=== PATIENT | female | born 1935 | race Caucasian/White ===

== ENCOUNTER → 2017-01-15 | Outpatient (CLI) | payer MEDICARE ==
[~2017-01-15] MED LIST: ACET-1256 PO; AMT50 PO; ASCA500 PO; BNV150 PO; CLTP PO; LODINE PO; MULT-506 PO; POTASSIUM OTC PO
--- NOTE | 2017-01-15 16:03 | DIAGNOSTIC IMAGING REPORT ---
LEFT HAND MIN 3 VIEWS ROUTINE CLINICAL HISTORY: S69.90XA Hand [id number] trauma COMPARISON: None. DISCUSSION: Generalized degenerative change. Osteopenia. No well-defined acute bony abnormality. There is no evidence for soft tissue swelling. IMPRESSION: No acute process. Degenerative change. Osteopenia. Electronically signed by: Blair Luu M.D. 01/15/2017 4:01 PM Dictated Date/Time: 01/15/2017 4:00 PM
== END | disposition home or self-care (01) ==
LOC: C.RADBC 14:50
PROVIDERS: ATTEND Physician Assistant Medical
DX: S69.90XA Unspecified injury of unspecified wrist, hand and finger(s), initial encounter (principal); X58.XXXA Exposure to other specified factors, initial encounter; M85.842 Other specified disorders of bone density and structure, left hand

== ENCOUNTER → 2017-05-05 | Outpatient (CLI) | payer MEDICARE ==
[2017-05-05 18:11] LABS: URINE APPEARANCE CLEAR (CLEAR); URINE COLOR DK YELLOW; URINE NITRITE NEG (NEG); URINE SPECIFIC GRAVITY 1.032 (1.000-1.030); UROBILINOGEN NEG (NEG)
[2017-05-05 18:17] LABS: MANUAL MICROSCOPIC REQUIRED? NO; REVIEW REQ? NO
[2017-05-05 18:18] LABS: URINE BILIRUBIN NEG (NEG)
== END | disposition home or self-care (01) ==
LOC: C.LABSPEC 17:26
PROVIDERS: ATTEND Obstetrics & Gynecology
DX: N30.00 Acute cystitis without hematuria (principal)